=== PATIENT | male | born 1950 | race Caucasian/White ===

== ENCOUNTER → 2024-10-23 | Outpatient (CLI) | payer MEDICARE, SELFPAY ==
--- NOTE | 2024-10-23 10:12 | XR_ITS ---
Examination: Knee bilateral, 7 views Technique: Knee AP, lateral, oblique each knee total 6 views, bilateral axial knees single view total 7 views Date and time of exam: October 23, 2024 1114 hours INDICATIONS: Knee pain years. 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
--- NOTE | 2024-10-23 10:13 | XR_ITS ---
Examination: AP upright chest single view TECHNIQUE: AP portable upright chest single view Exam date and time: October 23, 2024 1117 hours Comparison October 30, 2023 INDICATIONS: Diagnosis hypertension FINDINGS: Mild enlargement cardiac contour Ectatic thoracic aorta No pneumonia or pulmonary edema Prominent osteopenia IMPRESSION: Mild cardiomegaly
[2024-10-23 12:18] LABS: Basophils % (Auto) 0 % (0-2.5); Eosinophils # (Auto) 0.2 Thou/mm3 (0.0-0.5); Eosinophils % (Auto) 2 % (0-10); Glucose Estimated Average 88 mg/dL (80-131); Hematocrit 32.6 % (41.0-53.0); Hemoglobin 10.1 g/dL (13.5-16.0); Hemoglobin A1C 4.7 % Hgb (4.8-6.0); Immature Granulocytes % (Auto) 1 % (0-0); Immature Granulocytes Auto 0.07 Thou/mm3 (0.00-0.00); Lymphocytes # (Auto) 1.6 Thou/mm3 (1.0-4.8); Lymphocytes % (Auto) 21 % (10-50); Mean Corpuscular Hemoglobin 29.4 pg (25.0-35.0); Mean Corpuscular Volume 95 fL (80-100); Monocytes # (Auto) 0.6 Thou/mm3 (0.0-0.8); Monocytes % (Auto) 7 % (0-12); Neutrophils # (Auto) 5.2 Thou/mm3 (1.8-7.7); Neutrophils % (Auto) 69 % (37-80); Nucleated Red Blood Cell % 0 /100 WBC (0); Platelet Count 223 Thou/mm3 (140-440); RDW Standard Deviation 55.2 fL (35.1-43.9); Red Blood Count 3.43 Miln/mm3 (4.50-5.90); White Blood Count 7.6 Thou/mm3 (3.8-10.6)
[2024-10-23 12:31] LABS: Alanine Aminotransferase 14 U/L (10-49); Albumin, Serum 3.4 gm/dL (3.4-4.8); Albumin/Globulin Ratio 1.1 (1.2-2.2); Alkaline Phosphatase 286 U/L (46-116); Anion Gap 7 (7-16); Aspartate Amino Transferase 20 U/L (0-34); BUN/Creatinine Ratio 20 Ratio (12-20); Bilirubin,Total 0.4 mg/dL (0.3-1.2); Blood Urea Nitrogen 24 mg/dL (9-23); Calcium 7.9 mg/dL (8.3-10.6); Calcium (Corrected) 8.4 mg/dL (8.5-10.1); Carbon Dioxide 27.6 mMol/L (20.0-31.0); Cardiac Risk Estimate 2.9 RATIO (4.0-6.7); Chloride 108 mMol/L (98-107); Cholesterol 93 mg/dL (132-200); Creatinine (Component) 1.2 mg/dL (0.6-1.3); Free T4 (Free Thyroxine) 0.89 ng/dL (0.89-1.76); Globulin 3.2 gm/dL (2.3-3.5); Glucose 99 mg/dL (74-106); HDL Cholesterol 32 mg/dL (40-60); LDL Cholesterol,Calculated 47 mg/dL (0-130); Osmolality,Calculated 288 (275-295); Potassium 3.9 mMol/L (3.4-5.1); Sodium 143 mMol/L (136-145); Thyroid Stimulating Hormone 2.67 uIU/mL (0.55-4.78); Total Protein 6.6 gm/dL (5.7-8.2); Triglycerides 71 mg/dL (30-150); eGFR > 60 See Note
[2024-10-23 12:35] LABS: INR 2.8 (0.9-1.3); Prothrombin Time 28.3 Seconds (9.0-12.2)
[2024-10-23 12:46] LABS: Vitamin B12 447 pg/mL (211-911); Vitamin D 25 Hydroxy Total 5.6 ng/mL (7.3-40.2)
== END | disposition home or self-care (01) ==
LOC: CDIM 10:02 → COPL 11:34
PROVIDERS: PCP Internal Medicine; Referring Provider Internal Medicine; Visit Provider Internal Medicine
DX: Z00.00 Encounter for general adult medical examination without abnormal findings (principal); I10 Essential (primary) hypertension; M25.561 Pain in right knee; M25.562 Pain in left knee
CPT/HCPCS: 36415; 71046; 73564; 80053; 80061; 82306; 82607; 83036; 84439; 84443; 85025; 85610; 85730

== ENCOUNTER → 2024-11-10 | Outpatient (CLI) | payer MEDICARE, SELFPAY ==
--- NOTE | 2024-11-10 | XR_ITS ---
Examination: Venous duplex lower extremity sonogram, bilateral. Date and time of exam: November 10, 2024 1228 hours INDICATIONS: Bilateral leg swelling redness and pain with nonhealing wounds one year Technique: Multiple sonographic images of the deep venous system have been obtained. B-mode/2-D grayscale imaging of vascular structures and Doppler spectral analysis (waveforms) and color performed Both legs are examined. Findings: Deep venous systems do not demonstrate abnormal echogenicity. All visualized deep veins exhibit compressibility. All visualized deep veins exhibit augmentation. Right popliteal cyst 6.2 cm seen with internal derangement right knee Impression: Negative for deep vein thrombosis
== END | disposition home or self-care (01) ==
PROVIDERS: PCP Internal Medicine; Referring Provider Internal Medicine; Visit Provider Internal Medicine
DX: R22.41 Localized swelling, mass and lump, right lower limb (principal); R22.42 Localized swelling, mass and lump, left lower limb
CPT/HCPCS: 93970

== ENCOUNTER → 2024-11-17 | Outpatient (CLI) | payer MEDICARE, MEDICAID, SELFPAY ==
--- NOTE | 2024-11-17 13:00 | XR_ITS ---
Examination: Abdomen sonogram, complete Date and time of exam: November 17, 2024 1254 hours INDICATIONS: Abnormal liver function tests on laboratory examination done 3 weeks ago. Technique: Multiple real-time grayscale transabdominal sonographic images of the abdomen have been obtained. Findings: Absent gallbladder Normal common bile duct 0.6 cm Pancreas obscured by bowel gas Mid distal aorta visualized not enlarged Hepatomegaly 20.4 cm fatty infiltration Normal hepatopedal portal venous flow Patent IVC Right kidney 11.0 cm renal cortex 1.0 cm Left kidney 12.0 cm renal cortex 1.2 cm No hydronephrosis Spleen 12.0 cm IMPRESSION: Moderate hepatomegaly, fatty liver
== END | disposition home or self-care (01) ==
PROVIDERS: PCP Internal Medicine; Referring Provider Internal Medicine; Visit Provider Internal Medicine
DX: K76.0 Fatty (change of) liver, not elsewhere classified (principal)
CPT/HCPCS: 76700